=== PATIENT | male | born 1990 | race Caucasian/White ===

== ENCOUNTER 2017-04-09 23:23 | Emergency (ER) | payer BC ==
[2017-04-09 23:28] VITALS: BP 117/69; PULSE 87; TEMP 98; BMI 30.5
--- NOTE | 2017-04-09 23:39 | PDOC ---
History of Present Illness - General Chief Complaint: Pain Stated Complaint: R ANKLE PAIN Time Seen by Provider: 04/09/17 23:26 History Source: Patient Exam Limitations: No Limitations - History of Present Illness Initial Comments: 04/09/17 23:37 This is a 27-year-old male who twisted his right ankle playing soccer. Patient said he heard 2 pops and the ankle immediately swelled up and he was unable to ambulate on it. Patient wrapped it up with an Ernst wrap and came in for evaluation. Patient denies any other injuries. Patient has a history of a prior ankle injury in the past. PAST MEDICAL HISTORY: As per history of present illness PAST SURGICAL HISTORY: no significant history FAMILY HISTORY: no pertinant history SOCIAL HISTORY: Pt lives with family and is employed. MEDICATIONS: reviewed ALLERGIES: As per nursing notes Review of Systems General: No fevers or chills, no weakness, no weight loss HEENT: No change in vision. No sore throat,. No ear pain CardioVascular: No chest pain or shortness of breath Respiratory:No cough, or wheezing. Gastrointestinal: no nausea, vomitting, diarrhea or constipation, No rectal bleeding Genitourinary: No dysuria, hematuria, or frequency Musculoskeletal: Right ankle pain and swelling as per history of present illness Neurologic: No headache, vertigo, dizziness or loss of consciousness Psychiatric: nor depression Skin: No rashes or easy bruising Endocrine: no increased thirst or abnormal weight change Allergic: no skin or latex allergy All other systems reviewed and normal GENERAL: The patient is awake, alert, and fully oriented, in no acute distress. HEAD: Normal with no signs of trauma. EYES: Pupils equal, round and reactive to light, extraocular movements intact, sclera anicteric, conjunctiva clear. EXTREMITIES: Right ankle there is moderate to marked swelling lateral malleolus with tenderness on palpation. Neurovascular distal is intact. There is decreased range of motion secondary to swelling and pain. NEUROLOGICAL: Normal speech, gait not tested secondary to ankle injury a [id number] and asked her cell phone [employer] PSYCH: Normal mood, normal affect. SKIN: Warm, Dry, normal turgor, no rashes or lesions noted. 04/10/17 00:12 X-ray no acute fracture or dislocation: Assessment and plan: This is a 27 her old male twisted his right ankle playing soccer. Patient had an x-ray that was negative for any acute pathology. Patient given Ernst wrap soft cast and crutches. Patient discharged home will follow-up with his orthopedist as needed Past History - Past Medical History Home Medications: Ambulatory Orders NK [No Known Home Medication] 04/09/17 - Immunization History Immunization Up to Date: Yes - Psycho/Social/Smoking Cessation Hx Anxiety: No Suicidal Ideation: No Smoking History: Unknown if ever smoked Have you smoked in the past 12 months: No Number of Cigarettes Smoked Daily: 0 Information on smoking cessation initiated: No Hx Alcohol Use: No Drug/Substance Use Hx: No Substance Use Type: None *Physical Exam - Vital Signs Last Vital Signs Temp Pulse Resp BP Pulse Ox 98 F 87 14 117/69 100 04/09/17 23:26 04/09/17 23:26 04/09/17 23:26 04/09/17 23:26 04/09/17 23:26 *DC/Admit/Observation/Transfer Diagnosis at time of Disposition: Right ankle sprain Qualifiers: Encounter type: initial encounter Involved ligament of ankle: unspecified ligament Qualified Code(s): S93.401A - Sprain of unspecified ligament of right ankle, initial encounter - Discharge Dispostion Disposition: HOME Condition at time of disposition: Good Admit: No - Patient Instructions Printed Discharge Instructions: Ankle Sprain Additional Instructions: With the Ernst wrap and use your crutches as needed for comfort when walking. Tylenol or Motrin as needed for pain. Follow-up with an orthopedist if he needed an orthopedist call Dr. Cox at [phone] for an appointment. Return to the emergency department immediately with ANY new, persistent or worsening symptoms. Continue any medications as previously prescribed by your physician. You should follow up with your primary doctor as soon as possible regarding today's emergency department visit. . Please make sure your doctor reviews the results of your emergency evaluation. Thank you for coming to the Emergency Department today for your care. It was a pleasure to see you today. Please note that your evaluation is INCOMPLETE until you follow-up with your doctor.
== END 2017-04-10 00:20 | disposition home or self-care (01) ==
LOC: FER 23:23
DX: S93.401A Sprain of unspecified ligament of right ankle, initial encounter (principal); W18.49XA Other slipping, tripping and stumbling without falling, initial encounter; Y93.67 Activity, basketball; Y92.310 Basketball court as the place of occurrence of the external cause
CPT/HCPCS: 73610-TC-RT; 73630-TC-RT; 99282-25